=== PATIENT | male | born 1990 | race Caucasian/White ===

== ENCOUNTER 2023-06-20 20:46 | Emergency (ER) | payer MEDICAID, SELFPAY ==
[2023-06-20 20:46] VITALS: BP 171/120; PULSE 79; RESP 15; TEMP 36.9; O2SAT 100; BMI 24.6
--- NOTE | 2023-06-20 21:56 | EDS_ITS ---
HPI History of Present Illness Chief Complaint: Sore Throat Informant: patient Onset/Context/Timing Onset: Days (3 days) Context: Gradual Onset Narrative Narrative: Patient presents with 3-day history of sore throat. Has had very mild cough. No fever or chills. He has been able to eat soft foods such as noodles and drink, but not able to eat regular meals. No other sick contacts at home. 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 [facility] Medical History (Updated 06/20/23 @ 23:[address] Rosa Phan MD) Hypertension Home Medications albuterol sulfate 90 mcg/actuation aerosol inhaler (Ventolin HFA) 1 - 2 puff inh alation Q4H PRN PRN Wheezing ##1 08/22/15 [Rx Last Taken Unknown] diphenhydramine HCl 25 mg capsule (Banophen) 50 mg (2 x 25 mg) PO TID PRN PRN Congestion ##30 08/22/15 [Rx Last Taken Unknown] BMX 180 mL suspension 10 ml PO TID PRN PRN pain #180 mL 06/20/23 [Rx Last Taken Unknown] penicillin V potassium 500 mg tablet 500 mg PO 4X/DAY #40 tabs 06/20/23 [Rx Last Taken Unknown] Allergy/AdvReac Type Severity Reaction Status Date / Time azithromycin [From Zithromax] Allergy Hives Verified 08/22/15 14:00 Social History Smoking Status: Current every day smoker tobacco type: cigarettes ROS ROS ED Constitutional Constitutional ED: Denies chills or fever(s) Eyes Eyes: Denies discharge from eye(s) ENT ENT ED: Reports sore throat; Denies discharge from eye(s) or rhinorrhea Cardiovascular Cardiovascular: Denies chest pain Respiratory/Chest Respiratory/Chest: Denies cough or dyspnea Gastrointestinal Gastrointestinal: Denies abdominal pain, nausea or vomiting Musculoskeletal Musculoskeletal: Denies back pain or extremity pain Integumentary Denies Abrasions or rash Neurologic Neurologic: Denies headache(s) or weakness Psychiatric Psychiatric: Denies anxiety or depression Allergic/Immunologic Allergic/Immunologic ED: Denies lip swelling or urticaria EXAM Physical Exam Narrative Exam Narrative: Patient sitting upright in bed. Speaks with a strong voice and is tolerating secretions well. Const Vital Signs: 06/20/23 20:46 06/20/23 22:08 Temperature 98.4 F Temperature Source Temporal Pulse Rate 79 Respiratory Rate 15 Respiratory Effort Normal Non-Labored Respiratory Pattern Normal Blood Pressure 171/120 H Blood Pressure Mean 137 Pulse Ox 100 Oxygen Delivery Method Room Air Positive well nourished and well developed General Appearance ED: well developed HEENT Reports moist mucous membranes HEENT Narrative: Posterior pharyngeal drainage with erythema. White patches noted over the bilateral tonsils as well as in the posterior soft palate. Uvula midline. Eyes EOMs intact bilaterally Chest Wall inspection of chest normal and palpation of chest normal Resp normal respiratory effort and clear to auscultation bilaterally Cardio regular rate and regular rhythm GI non-tender Palpation: soft Extremity normal to inspection Neuro oriented x3 and no sensory deficits noted Motor Exam: strength 5/5 throughout Psych mental status grossly normal Skin no rashes or lesions noted MDM MDM MDM Narrative Medical decision making narrative: Patient given ibuprofen and a dose of Decadron. Rapid strep obtained. Rapid strep is negative. Patient is continue Tylenol and ibuprofen. Push fluids. I will write him BMX mouthwash also to help with pain and inflammation. He does report some dental pain and I will cover him with a course of penicillin as well. Patient to follow-up in the [facility] where he lives. Discharge Plan Triage Chief Complaint: Sore Throat ED Provider: Rosa Phan Dx/Rx/DC Orders Clinical Impression: Pain, dental, Pharyngitis Instructions: ED Dental Pain, ED Pharyngitis, Viral Prescriptions: New BMX 180 mL suspension 10 ml PO TID PRN PRN (Reason: pain) Qty: 180 0RF Rx Instructions: Benadryl 12.5 mg/5 mL oral elixir 60 mL; Maalox Maximum Strength 400 mg-400 mg-40 mg/5 mL oral suspension 60 mL; Xylocaine Viscous 2 % mucosal solution 60 mL; Per 180 mL - SWISH AND SPIT 10mL up to 3 times a day as needed for pain penicillin V potassium 500 mg tablet 500 mg PO 4X/DAY Qty: 40 0RF No Action albuterol sulfate [Ventolin HFA] 1 INHALER inhaler 1 - 2 puff inhalation Q4H PRN PRN (Reason: Wheezing) Qty: 1 0RF diphenhydramine HCl [Banophen] 25 MG capsule 50 mg PO TID PRN PRN (Reason: Congestion) Qty: 30 0RF Primary Care Provider: Care Physician,No Primary Referrals: Care Physician,No Primary [Primary Care Provider] - Disposition Disposition: Home, Self Care
--- OUTSIDE RECORDS SUMMARY | 2023-06-20 22:09 | XMS RPT_ITS | CCD ---
Author Name Unknown Address [address] [place] [address] Organization [facility] Care Team Providers Care Assistant Plant Control Operator Name Role Phone Kasia Hazel Unavailable Unavailable PROVIDER, UNKNOWN Unavailable Unavailable No, PCP Unavailable Unavailable [facility] Primary Care Unavailable WILMAR ELAM Attending Unavailable DULCE TANG Referring Unavailable [facility] Primary Care Unavailable Unavailable Primary Care Provider Unavailabl e Unavailable Primary Care Provider Unavailabl e Unavailable Primary Care Provider Unavailabl e INC, [facility] Primary Care Unavailable WLIMAR BRASHER Attending Unavailab TACHO Cline Attending Unavailable Allergies Allergy Classification Reported Allergen(s) Allergy Type Date of Onset Reaction(s) Facility (3 sources) Azithromycin; Translations: [AZITHROMYCIN] Drug Allergy 01-08-2017 [facility] [place], [facility] Repository Medications Current Medications Medication Drug Class(es) Dates Sig (Normalized) Sig (Original) cyclobenzaprine hydrochloride 10 mg oral tablet (1 source) Muscle Relaxant Start: 07-24-2020 End: 08-03-2020 take 1 tablet by mouth three times daily as needed for muscle spasms cyclobenzaprine (FLEXERIL) 10 MG tablet Take 1 tablet by mouth 3 times daily as needed for Muscle spasms 21 tablet 0 07/24/2020 08/03/2020 Active lidocaine 0.05 mg/mg medicated patch (1 source) Antiarrhythmic, Amide Local Anesthetic Start: 07-24-2020 End: 08-03-2020 lidocaine (LIDODERM) 5 % Place 1 patch onto the skin daily for 10 days 12 hours on, 12 hours off. 10 patch 0 07/24/2020 08/03/2020 Active Completed/Discontinued Medications Medication Drug Class(es) Dates Sig (Normalized) Sig (Original) acetaminophen 500 mg oral tablet (2 sources) Start: 03-29-2023 End: 03-29-2023 acetaminophen (Tylenol) tablet 1,000 mg cephalexin 500 mg oral capsule (1 source) Cephalosporin Antibacterial Start: 01-12-2019 End: 01-12-2019 cephALEXin (KEFLEX) capsule 1,000 mg 1 ml dexamethasone phosphate 4 mg/ml injection (1 source) Corticosteroid Start: 07-24-2020 End: 07-24-2020 dexamethasone (DECADRON) injection 8 mg iopamidol (Isovue-370) 76 % injection 75 mL (2 sources) Start: 03-29-2023 End: 03-29-2023 iopamidol (Isovue-370) 76 % injection 75 mL 1 ml ketorolac tromethamine 30 mg/ml cartridge (3 sources) Nonsteroidal Anti-inflammatory Drug, Cyclooxygenase Inhibitor Start: 03-29-2023 End: 03-29-2023 ketorolac (Toradol) injection 15 mg Problems Active Problems Problem Classification Problem Date Documented Da te Episodic/Chronic Abdominal pain (4 sources) Abdominal pain; Translations: [Unspecified abdominal pain] Onset: 03-29-2023 03-29-2023 Episodic Anxiety disorders (2 sources) Anxiety disorder, unspecified; Translations: [Anxiety disorder, unspecified] Onset: 01-08-2017 Chronic Asthma (2 sources) Unspecified asthma, uncomplicated; Translations: [Unspecified asthma, uncomplicated] Onset: 01-08-2017 Chronic Genitourinary congenital anomalies (4 sources) Renal agenesis; Translations: [Renal agenesis, unspecified] Onset: 03-29-2023 03-29-2023 Chronic Open wounds of extremities (1 source) Laceration of finger; Translations: [Laceration of right middle finger, foreign body presence unspecified, nail damage status unspecified, initial encounter] Episodic Other injuries and conditions due to external causes (2 sources) Muscle strain Onset: 09-18-2018 Episodic Other male genital disorders (3 sources) Pain of left testicle; Translations: [Left testicular pain] Onset: 03-29-2023 03-29-2023 Episodic Other male genital disorders (1 source) Left testicular pain; Translations: [Left testicular pain] Onset: 03-29-2023 Episodic Other upper respiratory infections (2 sources) Acute upper respiratory infection, unspecified; Translations: [Acute upper respiratory infection, unspecified] Onset: 05-09-2023 Episodic Otitis media and related conditions (2 sources) Otitis media, unspecified, left ear; Translations: [Otitis media, unspecified, left ear] Onset: 05-09-2023 Episodic Spondylosis; intervertebral disc disorders; other back problems (1 source) Acute back pain with sciatica; Translations: [Acute left-sided low back pain with sciatica, sciatica laterality unspecified] Episodic Substance-related disorders (2 sources) Nicotine dependence, unspecified, uncomplicated; Translations: [Nicotine dependence, unspecified, uncomplicated] Onset: 01-08-2017 Chronic Unclassified (2 sources) Other specified disorders of teeth and supporting structures; Translations: [Other specified disorders of teeth and supporting structures] Onset: 01-08-2017 Past or Other Problems Problem Classification Problem Date Documented Da te Episodic/Chronic Allergic reactions (2 sources) Allergy status to other antibiotic agents status; Translations: [Allergy status to other antibiotic agents status] Onset: 01-08-2017 Episodic Results Test Name Value Interpretation Reference Range Facil ity Vital Signs Date Time Vital Sign Value Performing Clinician Faci lity 03-29-2023 20:27-0400 Diastolic blood pressure 73 mm[Hg] Tacho [employer] Phone: [facility] 03-29-2023 20:27-0400 Heart rate 74 /min Tacho [employer] Phone: [facility] 03-29-2023 20:27-0400 Respiratory rate 18 /min Tacho [employer] Phone: [facility] 03-29-2023 20:27-0400 SaO2% (BldA) [Mass fraction] 99 % [employer] Phone: [facility] 03-29-2023 20:27-0400 Systolic blood pressure 128 mm[Hg] Tacho [employer] Phone: [facility] 03-29-2023 16:57-0400 Body temperature 98.71 [degF] Tacho [employer] Phone: [facility] 03-29-2023 16:51-0400 Body height 175.3 cm Tacho [employer] Phone: [facility] 03-29-2023 16:51-0400 Body mass index (BMI) [Ratio] 25.1 kg/m2 Tacho Bravo [employer] Work Phone: [facility] 03-29-2023 16:51-0400 Body weight 77.11 kg Tacho Bravo [employer] Work Phone: [facility] 07-24-2020 16:06-0500 BMI (Body Mass Index) 29.09 kg/m2 Fransico Candelaria [employer] Work Phone: 07-24-2020 16:06-0500 Body Temperature 98.29 [degF] Fransico Candelaria [employer] [facility] Work Phone: 07-24-2020 16:06-0500 Body weight 89.36 kg Fransico Candelaria [employer] [facility] Work Phone: 07-24-2020 16:06-0500 BP Diastolic 116 mm[Hg] Fransico Candelaria [employer] [facility] Work Phone: 07-24-2020 16:06-0500 BP Systolic 156 mm[Hg] Fransico Candelaria [employer] [facility] Work Phone: 07-24-2020 16:06-0500 Height 175.3 cm Fransico Candelaria [employer] [facility] Work Phone: 07-24-2020 16:06-0500 Pulse (Heart Rate) 81 /min Fransico Candelaria [employer] [facility] Work Phone: 07-24-2020 16:06-0500 Pulse Oximetry 98 % Fransico Teagan [employer] [facility] Work Phone: 07-24-2020 16:06-0500 Respiratory Rate 16 /min Fransico [place] [email or web address] Phone: 01-12-2019 10:43-0400 BP Diastolic 95 mm[Hg] Chaz Kind[place] , [place] 01-12-2019 10:43-0400 BP Systolic 147 mm[Hg] Chaz [place] , [place] 01-12-2019 09:14-0400 BMI (Body Mass Index) 25.83 kg/m2 Chaz [employer] [facility], [place] 01-12-2019 09:14-0400 Body Temperature 98.01 [degF] Chaz Alaniz [facility], [place] 01-12-2019 09:140400 Body weight 81.65 kg Chaz Alaniz [facility] [place] 01-12-2019 09:140400 Height 177.8 cm Chaz Alaniz [facility] [place] 01-12-2019 09:14-0400 Pulse (Heart Rate) 94 /min [facility] 01-12-2019 09:14-0400 Pulse Oximetry 98 % Chaz Alaniz [facility] , [place] 01-12-2019 09:14-0400 Respiratory Rate 18 /min Chaz Alaniz [facility] [place] Encounters Encounter Date Encounter Type Care Provider Facility Start: 05-09-2023 End: 05-09-2023 Emergency department patient visit [facility] Start: 03-29-2023 End: 03-29-2023 Emergency department patient visit TACHO BRAVO [facility] Start: 03-29-2023 End: 03-29-2023 Emergency department patient visit Tacho Bravo Work Phone: [facility] EMERGENCY DEPT Procedures Date Procedure Procedure Detail Performing Clinician Start: 03-29-2023 Ct abdomen & pelvis w/contrast material Silvestre Lewis STATISTICS PROFESSOR - HOSPITAL STAFF PHARMACIST Work Phone: Start: 03-29-2023 Us scrotum & contents M aetineemil Lópezo STATISTICS PROFESSOR - HOSPITAL STAFF PHARMACIST Work Phone: Start: 03-29-2023 Urinalysis complete panel - Urine Silvestre Lewis STATISTICS PROFESSOR - HOSPITAL STAFF PHARMACIST Work Phone: Start: 03-29-2023 Urnls dip stick/tabl et rgnt auto w/o microscopy Silvestre Lópezo STATISTICS PROFESSOR - HOSPITAL STAFF PHARMACIST Work Phone: Start: 03-29-2023 Comprehensive metabo lic panel Silvestre Lewis STATISTICS PROFESSOR - HOSPITAL STAFF PHARMACIST Work Phone: Start: 07-24-2020 Radex ribs uni w/pos teroant ch minimum 3 views Fransico Candelaria Work Phone: Plan of Treatment Date Care Activity Detail Author Start: 2038 Zoster Vaccines (1 of 2) Zoster Vacc brendan (1 of 2) [facility] Start: 01-24-2023 Influenza vaccination Influenza Vacc ine (#1) [facility] Start: 01-25-2020 Influenza vaccination Flu vaccine (# 1) [facility] Work Phone: Start: 01-24-2019 Influenza vaccination Flu vaccine (# 1) [place] Start: 09-04-2007 DTaP/Tdap/Td Vaccine s (1 - Tdap) DTaP/Tdap/Td Vaccines (1 - Tdap) [facility] Start: 2006 Hepatitis C screening Hepatitis C Sc reening [facility] Start: 2000 Depression Screening Depression Scre ening [facility] Start: 1994 Pneumococcal Vaccine : Pediatrics (0 to 5 Years) and At-Risk Patients (6 to 64 Years) (1 - PCV) Pneumococcal Vaccine: Pediatrics (0 to 5 Years) and At-Risk Patients (6 to 64 Years) (1 - PCV) [facility] Start: 1989 MMR Vaccines (1 of 1 - Standard series) MMR Vaccines (1 of 1 - Standard series) [facility] Start: 1989 Varicella vaccination Varicell a Vaccines (1 of 2 - 2-dose childhood series) [facility] Start: 03-05-1989 COVID-19 Vaccine (#1) COVID-19 Vacci ne (#1) [facility] Start: 1988 Hepatitis B Vaccines (1 of 3 - 3-dose series) Hepatitis B Vaccines (1 of 3 - 3-dose series) [facility] Start: 1988 HIV screening HIV Screening [facility] End: 03-29-2023 Neisseria gonorrhoeae DNA [Presence] in Cervical mucus by NATALIA with probe detection Chlamydia/Gonorrhea Microbiology STAT Once (Lab) for 1 Occurrences starting 03/29/2023 until 03/29/2023 [facility] Work Phone: Payers Date Payer Category Payer Medicaid [id number] 2020 Medicaid [place] [employer] [place] [employer] ODM [id number] 2020-Present [phone] [address] [place] [address] Medicaid HMO [id number] 1988 Unknown [id number] Private Health Insurance Social History Date Type Detail Facility Start: 01-12-2019 End: 07-24-2020 Tobacco smoking status NHIS Current every day smoker [place], [place] History of tobacco use Cigarette Smoker [place] Start: 01-12-2019 End: 03-29-2023 Cigarettes smoked current (pack per day) - Reported [facility] [employer] Start: 01-12-2019 End: 03-29-2023 Alcohol intake Yes [facility] Start: 11-21-2018 Alcohol Comment Socially Silvia Kaplan [place], [place] Start: 1990 Sex Assigned At Not on file [place], [place] Start: 07-24-2020 Tobacco use and exposure Never used [employer] [facility] Work Phone: Start: 07-24-2020 Alcohol intake Current drinke r of alcohol (finding) [employer] [facility] Work Phone: Exposure to SARS-CoV -2 (event) Not sure [employer] [facility] Work Phone: How often to you hav e a drink containing alcohol? 2-4 times a month [employer] How many standard dr inks containing alcohol do you have on a typical day? 3 or 4 [facility] How often do you hav e 6 or more drinks on 1 occasion? Less than monthly [facility] Clinical Note 03-29-2023 Note Date & Type Note Facility 03-29-2023 Note I saw this patient v sanrdo briefly as the Provider in Triage to establish acuity and develop basic plan of care. A more thorough history and physical exam will be documented by treating physician and/or JOSEFA in the emergency department. History: Patient is a 32-year-old with no significant past medical history presenting to the emergency department with left-sided abdominal pain that radiates into the left testicle with left testicular pain. Left groin pain. Unsure if he has a hernia. Denies any urinary issues. Unsure if it is swollen but does have some tenderness to the left testicle. Denies any flank pain. Denies any vomiting, diarrhea, fevers, chills. GENERAL: The patient appears well nourished, well developed. Good historian. Able to answer questions appropriately. Vital signs as documented. HEENT: Head is normocephalic, atraumatic. No scleral icterus or orbital trauma noted. PERRLA, EOM intact. Mucous membranes moist. Nares patent without copious rhinorrhea. Neck: Supple. No lymphadenopathy. LUNGS: Lungs are clear to auscultation, without any respiratory distress. Able to speak full sentences, no accessory muscle use CARDIAC: HRRR, no murmurs, rubs or gallops ABDOMEN: soft, tender on palpation to left upper quadrant, left lower quadrant, left groin with no obvious masses, nondistended. BS + x 4 quadrants, No guarding. No CVA tenderness : Tenderness on palpation to left testicle with no rashes, lesions MS: MAXWELL. Non edematous, with no obvious deformities. SKIN: Good color, with no significant rashes. No pallor. NEURO: No obvious neurological deficits, normal sensation and strength bilaterally. patient able to ambulate. Plan: -IV, lab work, imaging Patient awaiting room in main ED, see ED provider note for full H and P, evaluation, disposition. Comment: Please note this report has been produced using speech recognition software and may contain errors related to that system including errors in grammar, punctuation, and spelling, as well as words and phrases that may be inappropriate. If there are any questions or concerns please feel free to contact the dictating provider for clarification. Silvestre Lewis APRN - WING 03/29/23 1702 [facility] Emergency department Note 03-29-2023 Mya Byers - 03/29/2023 5:48 PM EDT Note Date & Type Note Facility 03-29-2023 Emergency department Note For matting of this note might be different from the original. Pt blood drawn from left AC and sent to the lab. Mya Byers 03/29/23 9668 [facility] Emergency department Note 03-29-2023 Mya Byers - 03/29/2023 5:48 PM EDJACjuliet LewisCHARO CNP - 03/29/2023 4:29 PM EDTJofran Bravo, - 03/29/2023 4:29 PM EDMeredith Jordan RN - 03/29/2023 4:29 PM EDT Note Date & Type Note Facility 03-29-2023 Emergency departm ent Note Pt blood drawn from left AC and sent to the lab. Mya Byers 03/29/23 1748 I saw this patient very briefly as the Provider in Triage to establish acuity and develop basic plan of care. A more thorough history and physical exam will be documented by treating physician and/or JOSEFA in the emergency department. History: Patient is a 32-year-old with no significant past medical history presenting to the emergency department with left-sided abdominal pain that radiates into the left testicle with left testicular pain. Left groin pain. Unsure if he has a hernia. Denies any urinary issues. Unsure if it is swollen but does have some tenderness to the left testicle. Denies any flank pain. Denies any vomiting, diarrhea, fevers, chills. GENERAL: The patient appears well nourished, well developed. Good historian. Able to answer questions appropriately. Vital signs as documented. HEENT: Head is normocephalic, atraumatic. No scleral icterus or orbital trauma noted. PERRLA, EOM intact. Mucous membranes moist. Nares patent without copious rhinorrhea. Neck: Supple. No lymphadenopathy. LUNGS: Lungs are clear to auscultation, without any respiratory distress. Able to speak full sentences, no accessory muscle use CARDIAC: HRRR, no murmurs, rubs or gallops ABDOMEN: soft, tender on palpation to left upper quadrant, left lower quadrant, left groin with no obvious masses, nondistended. BS + x 4 quadrants, No guarding. No CVA tenderness : Tenderness on palpation to left testicle with no rashes, lesions MS: MAXWELL. Non edematous, with no obvious deformities. SKIN: Good color, with no significant rashes. No pallor. NEURO: No obvious neurological deficits, normal sensation and strength bilaterally. patient able to ambulate. Plan: -IV, lab work, imaging Patient awaiting room in main ED, see ED provider note for full H and P, evaluation, disposition. Comment: Please note this report has been produced using speech recognition software and may contain errors related to that system including errors in grammar, punctuation, and spelling, as well as words and phrases that may be inappropriate. If there are any questions or concerns please feel free to contact the dictating provider for clarification. CHARO Kong CNP 03/29/23 1702 EMERGENCY DEPARTMENT ENCOUNTER Pt Name: Ben Glez Birthdate 1990 Date of evaluation: 03/29/2023 ED Provider: Tacho Bravo DO CHIEF COMPLAINT Chief Complaint Patient presents with Flank Pain PT has been dealing with left sided flank pain for the past 3 days that radiates into groin and back. Pain spiked today during bowel movement. HISTORY OF PRESENT ILLNESS (Location/Symptom, Timing/Onset, Context/Setting, Quality, Duration, Modifying Factors, Severity) Note limiting factors. I wore appropriate PPE for the entirety of this encounter. HPI Ben Glez is a 32 y.o. male who presents to the emergency department with flank pain and testicle pain. The patient reports symptoms started around 9 AM this morning after having a bowel movement. Pain is located in the left flank and left lower quadrant, described as sharp and severe in intensity. Pain radiates down into the left testicle. The patient denies nausea or vomiting. He reports one normal bowel movement this morning. He denies previous abdominal surgeries. Denies dysuria. Nursing Notes were reviewed. Limitations to history: Outside historians: REVIEW OF SYSTEMS Review of Systems Genitourinary: Positive for flank pain and testicular pain. PAST MEDICAL HISTORY Past Medical History: Diagnosis Date Anxiety Asthma SURGICAL HISTORY No past surgical history on file. CURRENT MEDICATIONS Previous Medications No medications on file ALLERGIES Patient has no allergy information on record. FAMILY HISTORY No family history on file. SOCIAL HISTORY Social History Socioeconomic History Marital status: Single Tobacco Use Smoking status: Every Day Packs/day: .5 Types: Cigarettes Smokeless tobacco: Never Substance and Sexual Activity Alcohol use: Yes Drug use: Yes Types: Marijuana SCREENINGS PHYSICAL EXAM ED Triage Vitals [03/29/23 1657] Temp Heart Rate Resp BP 37.1 C (98.7 F) 89 16 124/86 SpO2 Temp Source Heart Rate Source Patient Position 99 % Temporal Monitor -- BP Location FiO2 (%) -- -- Physical Exam Constitutional: General: He is not in acute distress. HENT: Head: Normocephalic. Eyes: Conjunctiva/sclera: Conjunctivae normal. Pulmonary: Effort: Pulmonary effort is normal. Abdominal: General: Abdomen is flat. Tenderness: There is abdominal tenderness in the left lower quadrant. There is left CVA tenderness. Genitourinary: Testes: Left: Tenderness and swelling present. Mass not present. Epididymis: Left: Tenderness present. Musculoskeletal: General: No deformity. Skin: General: Skin is warm and dry. Psychiatric: Mood and Affect: Mood normal. DIAGNOSTIC RESULTS RADIOLOGY (Per Emergency Physician): Interpretation per the Radiologist below, if available at the time of this note: CT abdomen pelvis w contrast Final Result 1. No acute findings. 2. Absent right kidney. Report Dictated on Electronically Signed By: Alfredo Lin MD Electronically Signed Date/Time: 03/29/2023 7:39 PM EDT US scrotum Final Result No evidence of testicular torsion or mass. There is a cyst measuring up to 1.6 cm within the head of the right epididymis. Tiny left-sided hydrocele. Report Dictated on Electronically Signed By: Juan Antonio Ordoñez MD Electronically Signed Date/Time: 03/29/2023 7:11 PM EDT LABS: Labs Reviewed CBC WITH AUTO DIFFERENTIAL - Abnormal Result Value Auto WBC 13.4 (*) RBC 5.20 Hemoglobin 16.2 Hematocrit 46.9 MCV 90.3 MCH 31.2 MCHC 34.5 RDW 13.0 Platelets 204 MPV 8.1 nRBC 0.0 Neutrophils Relative 78.0 Lymphocytes Relative 12.9 (*) Monocytes Relative 8.2 Eosinophils Relative 0.7 (*) Basophils Relative 0.2 Neutrophils Absolute 10.5 (*) Lymphocytes Absolute 1.7 Monocytes Absolute 1.1 (*) Eosinophils Absolute 0.1 Basophils Absolute 0.0 LIPASE - Abnormal LIPASE 437 (*) COMPREHENSIVE METABOLIC PANEL - Normal SODIUM 138 POTASSIUM 4.2 CHLORIDE 100 CARBON DIOXIDE 30 ANION GAP 9 UREA NITROGEN 18 CREATININE 0.92 GLUCOSE 86 CALCIUM 9.3 AST (SGOT) 23 ALT 21 ALKALINE PHOSPHATASE 50 ALBUMIN 4.5 BILIRUBIN, TOTAL 0.7 TOTAL PROTEIN 7.0 eGFR >90.0 LACTIC ACID WITH REFLEX - Normal LACTIC ACID 1.0 COMPLETE URINALYSIS - Normal Color, Urine Yellow Clarity, Urine Clear pH, Urine 6.5 Leukocytes, Urine Negative Nitrite, Urine Negative Protein, Urine Negative Glucose, Urine Normal Bilirubin, Urine Negative Ketones, Urine Negative Urobilinogen, Urine Normal Blood, Urine Negative SPECIFIC GRAVITY OF URINE (NUMERIC) 1.024 CHLAMYDIA/GONORRHEA COMPLETE URINALYSIS WITH REFLEX TO CULTURE Narrative: The following orders were created for panel order Urinalysis complete with reflex to Culture. Procedure Abnormality Status --------- ------ Complete Urinalysis[[id number]] Normal Final result Please view results for these tests on the individual orders. All other labs were within normal range or not returned as of this dictation. EMERGENCY DEPARTMENT COURSE and DIFFERENTIAL DIAGNOSIS/MDM: Vitals: Vitals: 03/29/23 1651 03/29/23 1657 BP: 124/86 Pulse: 89 Resp: 16 Temp: 37.1 C (98.7 F) TempSrc: Temporal SpO2: 99% Weight: 77.1 kg (170 lb) Height: 1.753 m (5' 9 ) Medications acetaminophen (Tylenol) tablet 1,000 mg (1,000 mg Oral Given 03/29/231808) ketorolac (Toradol) injection 15 mg (15 mg IntraVENous Given 03/29/231808) sodium chloride 0.9 % bolus 1,000 mL (1,000 mL IntraVENous New Bag 03/29/231809) iopamidol (Isovue-370) 76 % injection 75 mL (75 mL IntraVENous Given 03/29/23 193) MDM The patient presented with chief complaint of flank pain and testicle pain. The patient appears uncomfortable, however in no acute distress, vitals are stable. See history and physical exam above. Differential diagnosis includes but is not limited to testicular torsion, referred testicle pain, epididymitis, orchitis, kidney stone, pyelonephritis, diverticulitis. The patient was given medications as above for his acute symptoms. To aid in management, I performed an independent interpretation of all laboratory tests, EKG, imaging, and other diagnostics ordered. CT is negative for acute processes. Ultrasound of the scrotum is negative for acute processes. Blood counts, lites lites, kidney function, urinalysis are unremarkable. Lipase is slightly elevated however not 3 times the upper limit of normal. The patient is also not having epigastric pain his pain is located in the left lower quadrant and left testicular region. The patient was updated on the results and questions were answered. Following the medications as above the patient has complete relief of his symptoms. CT revealed incidental finding of absent right kidney, the patient was updated on the incidental finding. The patient reports that he is sexually active with his partner and has very low suspicion for gonorrhea or chlamydia. Gonorrhea chlamydia urine test was sent, given that the patient has low clinical suspicion he would not be treated at this time. The patient is currently resting comfortably, vitals are stable. Plan for discharge with follow-up to PCP. He was instructed to return if symptoms change or worsen. The patient demonstrated general understanding was agreeable to medical plan. Asher Bravo DO am the tacker off of record. PROCEDURES: Unless otherwise noted below, none Procedures FINAL IMPRESSION 1. Left testicular pain 2. Abdominal pain, unspecified abdominal location 3. Renal agenesis DISPOSITION Discharge 03/29/2023 08:08:25 PM PATIENT REFERRED TO: [facility] [address] [place] [id number] If symptoms worsen DISCHARGE MEDICATIONS: New Prescriptions No medications on file (Comment: Please note this report has been produced using speech recognition software and may contain errors related to that system including errors in grammar, punctuation, and spelling, as well as words and phrases that may be inappropriate. If there are any questions or concerns please feel free to contact the dictating provider for clarification.) Tacho Bravo DO (electronically signed) Emergency Medicine Provider Tacho Bravo DO 03/29/232012 Bed: 32 Expected date: Expected time: Means of arrival: Comments: triage Jasmeet Jordan RN 03/29/231751 documented in this encounter [facility] Emergency department Note 03-29-2023 Jasmeet Jordan RN - 03/29/2023 4:29 PM EDT Note Date & Type Note Facility 03-29-2023 Emergency department Note For matting of this note might be different from the original. Bed: 32 Expected date: Expected time: Means of arrival: Comments: triage Jasmeet Jordan RN 03/29/231751 [facility] Physician Emergency department Note 03-29-2023 CHARO Kong CNP - 03/29/2023 4:29 PM EDT Note Date & Type Note Facility 03-29-2023 Physician Emergency department Note I saw this patient very briefly as the Provider in Triage to establish acuity and develop basic plan of care. A more thorough history and physical exam will be documented by treating physician and/or JOSEFA in the emergency department. History: Patient is a 32-year-old with no significant past medical history presenting to the emergency department with left-sided abdominal pain that radiates into the left testicle with left testicular pain. Left groin pain. Unsure if he has a hernia. Denies any urinary issues. Unsure if it is swollen but does have some tenderness to the left testicle. Denies any flank pain. Denies any vomiting, diarrhea, fevers, chills. GENERAL: The patient appears well nourished, well developed. Good historian. Able to answer questions appropriately. Vital signs as documented. HEENT: Head is normocephalic, atraumatic. No scleral icterus or orbital trauma noted. PERRLA, EOM intact. Mucous membranes moist. Nares patent without copious rhinorrhea. Neck: Supple. No lymphadenopathy. LUNGS: Lungs are clear to auscultation, without any respiratory distress. Able to speak full sentences, no accessory muscle use CARDIAC: HRRR, no murmurs, rubs or gallops ABDOMEN: soft, tender on palpation to left upper quadrant, left lower quadrant, left groin with no obvious masses, nondistended. BS + x 4 quadrants, No guarding. No CVA tenderness : Tenderness on palpation to left testicle with no rashes, lesions MS: MAXWELL. Non edematous, with no obvious deformities. SKIN: Good color, with no significant rashes. No pallor. NEURO: No obvious neurological deficits, normal sensation and strength bilaterally. patient able to ambulate. Plan: -IV, lab work, imaging Patient awaiting room in main ED, see ED provider note for full H and P, evaluation, disposition. Comment: Please note this report has been produced using speech recognition software and may contain errors related to that system including errors in grammar, punctuation, and spelling, as well as words and phrases that may be inappropriate. If there are any questions or concerns please feel free to contact the dictating provider for clarification. CHARO Kong CNP 03/29/23 1702 [place] Phone: Physician Emergency department Note 03-29-2023 Tacho Bravo DO - 03/29/2023 4:29 PM EDT Note Date & Type Note Facility 03-29-2023 Physician Emergen cy department Note EMERGENCY DEPARTMENT ENCOUNTER Pt Name: Ben Glez Birthdate 1990 Date of evaluation: 03/29/2023 ED Provider: Tacho Bravo DO CHIEF COMPLAINT Chief Complaint Patient presents with Flank Pain PT has been dealing with left sided flank pain for the past 3 days that radiates into groin and back. Pain spiked today during bowel movement. HISTORY OF PRESENT ILLNESS (Location/Symptom, Timing/Onset, Context/Setting, Quality, Duration, Modifying Factors, Severity) Note limiting factors. I wore appropriate PPE for the entirety of this encounter. HPI Ben Glez is a 32 y.o. male who presents to the emergency department with flank pain and testicle pain. The patient reports symptoms started around 9 AM this morning after having a bowel movement. Pain is located in the left flank and left lower quadrant, described as sharp and severe in intensity. Pain radiates down into the left testicle. The patient denies nausea or vomiting. He reports one normal bowel movement this morning. He denies previous abdominal surgeries. Denies dysuria. Nursing Notes were reviewed. Limitations to history: Outside historians: REVIEW OF SYSTEMS Review of Systems Genitourinary: Positive for flank pain and testicular pain. PAST MEDICAL HISTORY Past Medical History: Diagnosis Date Anxiety Asthma SURGICAL HISTORY No past surgical history on file. CURRENT MEDICATIONS Previous Medications No medications on file ALLERGIES Patient has no allergy information on record. FAMILY HISTORY No family history on file. SOCIAL HISTORY Social History Socioeconomic History Marital status: Single Tobacco Use Smoking status: Every Day Packs/day: .5 Types: Cigarettes Smokeless tobacco: Never Substance and Sexual Activity Alcohol use: Yes Drug use: Yes Types: Marijuana SCREENINGS PHYSICAL EXAM ED Triage Vitals [03/29/23 1657] Temp Heart Rate Resp BP 37.1 C (98.7 F) 89 16 124/86 SpO2 Temp Source Heart Rate Source Patient Position 99 % Temporal Monitor -- BP Location FiO2 (%) -- -- Physical Exam Constitutional: General: He is not in acute distress. HENT: Head: Normocephalic. Eyes: Conjunctiva/sclera: Conjunctivae normal. Pulmonary: Effort: Pulmonary effort is normal. Abdominal: General: Abdomen is flat. Tenderness: There is abdominal tenderness in the left lower quadrant. There is left CVA tenderness. Genitourinary: Testes: Left: Tenderness and swelling present. Mass not present. Epididymis: Left: Tenderness present. Musculoskeletal: General: No deformity. Skin: General: Skin is warm and dry. Psychiatric: Mood and Affect: Mood normal. DIAGNOSTIC RESULTS RADIOLOGY (Per Emergency Physician): Interpretation per the Radiologist below, if available at the time of this note: CT abdomen pelvis w contrast Final Result 1. No acute findings. 2. Absent right kidney. Report Dictated on Electronically Signed By: Alfredo Lin MD Electronically Signed Date/Time: 03/29/2023 7:39 PM EDT US scrotum Final Result No evidence of testicular torsion or mass. There is a cyst measuring up to 1.6 cm within the head of the right epididymis. Tiny left-sided hydrocele. Report Dictated on Electronically Signed By: Juan Antonio Ordoñez MD Electronically Signed Date/Time: 03/29/2023 7:11 PM EDT LABS: Labs Reviewed CBC WITH AUTO DIFFERENTIAL - Abnormal Result Value Auto WBC 13.4 (*) RBC 5.20 Hemoglobin 16.2 Hematocrit 46.9 MCV 90.3 MCH 31.2 MCHC 34.5 RDW 13.0 Platelets 204 MPV 8.1 nRBC 0.0 Neutrophils Relative 78.0 Lymphocytes Relative 12.9 (*) Monocytes Relative 8.2 Eosinophils Relative 0.7 (*) Basophils Relative 0.2 Neutrophils Absolute 10.5 (*) Lymphocytes Absolute 1.7 Monocytes Absolute 1.1 (*) Eosinophils Absolute 0.1 Basophils Absolute 0.0 LIPASE - Abnormal LIPASE 437 (*) COMPREHENSIVE METABOLIC PANEL - Normal SODIUM 138 POTASSIUM 4.2 CHLORIDE 100 CARBON DIOXIDE 30 ANION GAP 9 UREA NITROGEN 18 CREATININE 0.92 GLUCOSE 86 CALCIUM 9.3 AST (SGOT) 23 ALT 21 ALKALINE PHOSPHATASE 50 ALBUMIN 4.5 BILIRUBIN, TOTAL 0.7 TOTAL PROTEIN 7.0 eGFR >90.0 LACTIC ACID WITH REFLEX - Normal LACTIC ACID 1.0 COMPLETE URINALYSIS - Normal Color, Urine Yellow Clarity, Urine Clear pH, Urine 6.5 Leukocytes, Urine Negative Nitrite, Urine Negative Protein, Urine Negative Glucose, Urine Normal Bilirubin, Urine Negative Ketones, Urine Negative Urobilinogen, Urine Normal Blood, Urine Negative SPECIFIC GRAVITY OF URINE (NUMERIC) 1.024 CHLAMYDIA/GONORRHEA COMPLETE URINALYSIS WITH REFLEX TO CULTURE Narrative: The following orders were created for panel order Urinalysis complete with reflex to Culture. Procedure Abnormality Status --------- ------ Complete Urinalysis[[id number]] Normal Final result Please view results for these tests on the individual orders. All other labs were within normal range or not returned as of this dictation. EMERGENCY DEPARTMENT COURSE and DIFFERENTIAL DIAGNOSIS/MDM: Vitals: Vitals: 03/29/23 1651 03/29/23 1657 BP: 124/86 Pulse: 89 Resp: 16 Temp: 37.1 C (98.7 F) TempSrc: Temporal SpO2: 99% Weight: 77.1 kg (170 lb) Height: 1.753 m (5' 9 ) Medications acetaminophen (Tylenol) tablet 1,000 mg (1,000 mg Oral Given 03/29/231808) ketorolac (Toradol) injection 15 mg (15 mg IntraVENous Given 03/29/231808) sodium chloride 0.9 % bolus 1,000 mL (1,000 mL IntraVENous New Bag 03/29/231809) iopamidol (Isovue-370) 76 % injection 75 mL (75 mL IntraVENous Given 03/29/231930) MDM The patient presented with chief complaint of flank pain and testicle pain. The patient appears uncomfortable, however in no acute distress, vitals are stable. See history and physical exam above. Differential diagnosis includes but is not limited to testicular torsion, referred testicle pain, epididymitis, orchitis, kidney stone, pyelonephritis, diverticulitis. The patient was given medications as above for his acute symptoms. To aid in management, I performed an independent interpretation of all laboratory tests, EKG, imaging, and other diagnostics ordered. CT is negative for acute processes. Ultrasound of the scrotum is negative for acute processes. Blood counts, lites lites, kidney function, urinalysis are unremarkable. Lipase is slightly elevated however not 3 times the upper limit of normal. The patient is also not having epigastric pain his pain is located in the left lower quadrant and left testicular region. The patient was updated on the results and questions were answered. Following the medications as above the patient has complete relief of his symptoms. CT revealed incidental finding of absent right kidney, the patient was updated on the incidental finding. The patient reports that he is sexually active with his partner and has very low suspicion for gonorrhea or chlamydia. Gonorrhea chlamydia urine test was sent, given that the patient has low clinical suspicion he would not be treated at this time. The patient is currently resting comfortably, vitals are stable. Plan for discharge with follow-up to PCP. He was instructed to return if symptoms change or worsen. The patient demonstrated general understanding was agreeable to medical plan. Asher Bravo DO am the tacker off of record. PROCEDURES: Unless otherwise noted below, none Procedures FINAL IMPRESSION 1. Left testicular pain 2. Abdominal pain, unspecified abdominal location 3. Renal agenesis DISPOSITION Discharge 03/29/2023 08:08:25 PM PATIENT REFERRED TO: [facility] [address] [facility] [id number] If symptoms worsen DISCHARGE MEDICATIONS: New Prescriptions No medications on file (Comment: Please note this report has been produced using speech recognition software and may contain errors related to that system including errors in grammar, punctuation, and spelling, as well as words and phrases that may be inappropriate. If there are any questions or concerns please feel free to contact the dictating provider for clarification.) Tacho Bravo DO (electronically signed) Emergency Medicine Provider Tacho Bravo DO 03/29/232012 [facility] Evaluation note Note Date & Type Note Facility documented in this encounter [facility] Hospital Discharge instructions Attachments Note Date & Type Note Facility Hospital Discharge instructions The following attachments cannot be sent through Care Everywhere.Severe Abdominal Pain Discharge Instructions, Adult (Mauritian)Acute Pain Discharge Instructions, Adult (Mauritian)documented in this encounter [facility] Reason for referral (narrative) Consultation (Routine) - Pending Review Note Date & Type Note Facility Referral ID Status Reason Start Date Expiration Date Visits Requested Visits Authorized [id number] Pending Review Specialty Services Required 03/29/2023 03/28/2024 1 1 [facility] Summary Purpose Family History No Family History Records FoundNo Family History Records FoundNo Family History Records FoundNo Family History Records FoundNo Family History Records FoundNo Family History Records FoundNo Family History Records Found Advance Directives No Advanced Directives Records FoundNo Advanced Directives Records FoundNo Advanced Directives Records FoundNo Advanced Directives Records FoundNo Advanced Directives Records FoundNo Advanced Directives Records FoundNo Advanced Directives Records Found Discharge Instructions * Instructions* Chaz Alaniz MD - 01/12/2019 Leave steri-strips on for 7-10 days. Keep splinted for entire duration. TYLENOL EXTRA STRENGTH FOR PAIN. * Attachments The following attachments cannot be sent through Care Everywhere. * Lacerations (Mauritian) documented in this encounter* Attachments The following attachments cannot be sent through Care Everywhere. * Back: Stretches: Exercises (Mauritian) documented in this encounter Assessments Diagnosis Laceration of right middle finger, foreign body presence unspecified, nail damage status unspecified, initial encounter- Primary Diagnosis Acute left-sided low back pain with sciatica, sciatica laterality unspecified- Primary Reason for Referral Status Reason Specialty Diagnoses / Procedures Referred By Contact Referred To Contact Open Specialty Services Required Physical Therapy Diagnoses Acute left-sided low back pain with sciatica, sciatica laterality unspecified An Mcgraw PA-C [address] [place] [address] [facility] [address] [place] [address] Scheduling Instructions [facility] Physical Therapy [facility] [address] [place] [address] Please fax orders to [phone] Call to schedule new appointment [phone] Additional Source Comments (unrecognized sect ion and content) No Status Records FoundNo Status Records FoundNo Status Records FoundNo Status Records FoundNo Status Records FoundNo Status Records FoundNo Status Records Found INFORMATION SOURCE (unrecogn ized section and content) DATE CREATED AUTHOR AUTHOR'S ORGANIZ ATION 09/29/2018 [facility] DATE CREATED AUTHOR AUTHOR'S ORGANIZ ATION 11/10/2018 [facility] DATE CREATED AUTHOR AUTHOR'S ORGANIZ ATION 12/17/2019 [facility] ([place] DATE CREATED AUTHOR AUTHOR'S ORGANIZ ATION 07/11/2020 [employer] DATE CREATED AUTHOR AUTHOR'S ORGANIZ ATION 07/28/2020 [facility] DATE CREATED AUTHOR AUTHOR'S ORGANIZ ATION 05/11/2023 [facility] Reason for Visit (unrecogniz ed section and content) Reason Comments Back Pain pt states left sided back pain shooting up and down left side of body x a few months but has progessivly worsened. pt states daily heavy lifting at work, no specfic injury. Reason Comments Flank Pain PT has been dealing with left sided flank pain for the past 3 days that radiates into groin and back. Pain spiked today during bowel movement. Ordered Prescriptions (unrec ognized section and content) Scheduled Active and Recently Administ ered Medications (unrecognized section and content) PRN Medication Order 03/27/2023 03/28/2023 03/29/2023 iopamidol (Isovue-370) 76 % injection 75 mL (COMPLETED) 75 mL, IntraVENous, IMG once PRN, contrast, Starting on 03/29/23 at 1930, For 1 dose 1930 (Given - Provid er: Daniela Clark, RODRIGUEZT) FOR RECORDS PERTAINING TO PATIENTS WHO ARE OR HAVE BEEN ENROLLED IN A CHEMICAL DEPENDENCY/SUBSTANCEABUSE PROGRAM, SOME INFORMATION MAY BE OMITTED. This clinical summary was aggregated from multiple sources. Caution should be exercised in using it in the provision of clinical care. This summary normalizes information from multiple sources, and as a consequence, information in this document may materially change the coding, format and clinical context of patient data. In addition, data may be omitted in some cases. CLINICAL DECISIONS SHOULD BE BASED ON THE PRIMARY CLINICAL RECORDS. [employer] provides no warranty or guarantee of the accuracy or completeness of information in this document.
[2023-06-20] MEDS: dexAMETHasone 4 MG Tablet PO (22:16)
[2023-06-20] MEDS: Ibuprofen 600 MG Tablet PO (22:16)
== END 2023-06-20 23:26 | disposition home or self-care (01) ==
PROVIDERS: Emergency Provider Emergency Medicine; Visit Provider Emergency Medicine
DX: J02.9 Acute pharyngitis, unspecified (principal); F17.210 Nicotine dependence, cigarettes, uncomplicated; K08.89 Other specified disorders of teeth and supporting structures; I10 Essential (primary) hypertension
CPT/HCPCS: 87651; 99283